=== PATIENT | female | born 1985 | race African-American/Black ===

== ENCOUNTER 2017-02-22 11:52 | Emergency (ER) | payer MEDICAID ==
[~2017-02-22] VITALS: Ht 162.6 cm; Wt 59.0 kg
[~2017-02-22 11:52] MED LIST: AMLO5TAB2 PO; CLON0.2T PO; HYD25TP TOP; HYDRX10T PO; INSLANTI SC; INSUINJ47 IJ; LEV500T GT; LISI40TA PO; LORA2TAB89 PO; PHE100C PO
[2017-02-22 15:46] LABS: Basophils # (auto) 0 uL; Basophils % (auto) 0.8 % (0.0-2.0); Eosinophils # (auto) 0.1 uL; Eosinophils % (auto) 1.2 % (0.0-7.0); Hematocrit 42.7 % (36.0-46.0); Hemoglobin 14.1 g/dL (12.2-16.2); Lymphocytes % (auto) 17.3 % (10.0-50.0); Mean Corpuscular Hemoglobin 30.5 pg (28.0-32.0); Mean Corpuscular Volume 92.2 fL (80.0-100.0); Mean Platelet Volume 7.4 fL (6.9-10.8); Monocytes # (auto) 0.3 uL; Monocytes % (auto) 5.3 % (0.0-12.0); Neutrophils # (auto) 4.2 uL; Neutrophils % (auto) 75.4 % (37.0-80.0); Nucleated Red Blood Cells % 0.2 %; Platelet Count (auto) 229 10^3/uL (140-450); Red Cell Distribution Width 15.4 % (11.8-14.3); White Blood Cell 5.6 10^3/uL (4.4-10.8)
[2017-02-22 15:55] LABS: Albumin 4.2 g/dL (3.4-5.0); Bilirubin, Total 0.3 mg/dL (0.2-1.0); Calcium 8.8 mg/dL (8.5-10.1); Potassium 3.2 mmol/L (3.5-5.1); Total Protein 9.5 g/dL (6.4-8.2)
[2017-02-22] MEDS ORDERED: ONDANSETRON ODT 4 MG TAB PO ONE (16:15)
[2017-02-22 16:49] LABS: Amylase 197 U/L (25-115)
[2017-02-22 19:00] VITALS: BP 177/132
[2017-02-22] MEDS ORDERED: ONDANSETRON HCL 4 MG/2 ML VIAL IM ONE (19:45)
== END 2017-02-22 20:26 | disposition home or self-care (01) ==
LOC: ER 11:52 → EDBD 11:52 → ER 20:26
DX: R10.9 Unspecified abdominal pain (principal); R11.2 Nausea with vomiting, unspecified; J45.909 Unspecified asthma, uncomplicated; I25.10 Atherosclerotic heart disease of native coronary artery without angina pectoris; E11.22 Type 2 diabetes mellitus with diabetic chronic kidney disease; I12.0 Hypertensive chronic kidney disease with stage 5 chronic kidney disease or end stage renal disease; N18.6 End stage renal disease; E78.5 Hyperlipidemia, unspecified; I25.2 Old myocardial infarction; Z90.49 Acquired absence of other specified parts of digestive tract; Z99.2 Dependence on renal dialysis
CPT/HCPCS: 36415; 76705; 80053; 82150; 82962; 83690; 84702; 85025; 96372; 99285; J2405